=== PATIENT | male | born 1965 | race Caucasian/White ===

== ENCOUNTER 2016-07-04 12:20 | Emergency (ER) | payer BC ==
[~2016-07-04] VITALS: Ht 181.6 cm; Wt 74.5 kg
[2016-07-04 12:58] LABS: HEMATOCRIT 43.9 % (38.0-50.0); MCH 30.6 PG (29.0-34.0); MCHC 35.1 G/DL (30.0-36.0); MCV 87.1 FL (86-99); MEAN PLAT.VOLUME 10.7 uM^3 (9.0-12.4); PLATELET COUNT 171 K/uL (156-360); RBC DIS.WIDTH-SD 40.6 % (39-53); RED BLOOD COUNT 5.04 M/uL (4.00-5.50); WHITE BLOOD COUNT 8.1 K/uL (4.1-10.2)
[2016-07-04 13:18] LABS: TROP-I INTERPRETATION NEGATIVE; TROPONIN-I < 0.01 ng/mL (0.0-0.30)
[2016-07-04 13:19] LABS: CHLORIDE 108 mEq/L (99-109); POTASSIUM 3.8 mEq/L (3.7-5.4); SODIUM 143 mEq/L (136-147)
[2016-07-04 13:21] LABS: GLUCOSE 91 mg/dL (70-99)
[2016-07-04 13:22] LABS: ANION GAP 9 MEQ/L (2-14)
[2016-07-04 13:23] LABS: TOTAL BILIRUBIN 0.9 mg/dL (0.0-1.0)
[2016-07-04 13:24] LABS: ALKALINE PHOSPHATASE 58 IU/L (3-129)
[2016-07-04 13:25] LABS: GFR ESTIMATE (CALCULATED) > 59 mL/min/
[2016-07-04 13:26] LABS: UREA NITROGEN (BUN) 15 mg/dL (9-23)
[2016-07-04 15:20] LABS: TROP-I INTERPRETATION NEGATIVE; TROPONIN-I < 0.01 ng/mL (0.0-0.30)
[2016-07-04] MEDS ORDERED: ATARAX,VISTARIL25 MG PO (15:43)
[2016-07-04 16:02] VITALS: BP 120/88
== END 2016-07-04 16:03 | disposition home or self-care (01) ==
LOC: EXP 12:20 → EME 12:20 → EXP 16:03
PROVIDERS: Nurse Practitioner Family
DX: R07.89 Other chest pain (principal); F41.9 Anxiety disorder, unspecified; R11.0 Nausea; Z73.3 Stress, not elsewhere classified; Z82.49 Family history of ischemic heart disease and other diseases of the circulatory system; Z79.82 Long term (current) use of aspirin
CPT/HCPCS: 71020; 80053; 84484; 85027; 93005; 99281; 99284; Q0177